=== PATIENT | female | born 1975 | race Caucasian/White ===

== ENCOUNTER 2024-04-11 21:28 | Outpatient (CLI) | payer OTHER, SELFPAY | END 2024-04-11 21:29 | disposition home or self-care (01) | LOC: AMB 04-30 04:15 | PROVIDERS: Visit Provider Family Medicine | DX: S69.91XA Unspecified injury of right wrist, hand and finger(s), initial encounter (principal); S49.91XA Unspecified injury of right shoulder and upper arm, initial encounter; V43.61XA Car passenger injured in collision with sport utility vehicle in traffic accident, initial encounter; Y92.410 Unspecified street and highway as the place of occurrence of the external cause | CPT/HCPCS: A0998 ==